=== PATIENT | female | born 1945 | race Caucasian/White ===

== ENCOUNTER 2016-10-09 16:09 | Inpatient (IN) | payer MEDICARE ==
[2016-10-09] MEDS ORDERED: SODIUM CHLORIDE 0.9% 1,000 ML IV STA (16:43)
[2016-10-09] MEDS ORDERED: SODIUM CHLORIDE 0.9% 500 ML IV STA (16:43)
[2016-10-09] MEDS ORDERED: METOCLOPRAMIDE 5 MG/ML 2 ML VIAL IVP STA (16:45)
--- NOTE | 2016-10-09 16:59 | ED ---
Syncope HPI - General Chief Complaint: Syncope Stated Complaint: Syncope Time Seen by Provider: 10/09/16 16:28 Source: patient, family Mode of arrival: wheelchair Limitations: no limitations - History of Present Illness Initial Comments: This 71-year-old white female presents complaining of a syncopal episode. She apparently was in her yard when she fell somewhat lightheaded or dizzy prior and apparently fell to the ground. She woke up approximately one hour later face down. She denies obtaining any injuries. She states that she felt quite weak afterwards and was nauseated. She denies any previous similar type incidents. She does relate that she has had a headache for the past one week with some associated neck pain. The headache is more in the frontal region. She denies any history of previous headaches. She denies being on any blood thinners. She denies any known cardiac history. She's never had a stress test or heart catheterization. She denies any chest pain shortness of breath or palpitations. She is somewhat nauseated but denies any vomiting. No other complaints or modifying factors. - Related Data Home Medications Medication Instructions Recorded Confirmed Aspirin [Adult Low Dose Aspirin EC] 81 mg PO DAILY 10/09/16 10/09/16 Cyanocobalamin [Vitamin B-12] 500 mcg PO DAILY 10/09/16 10/09/16 Ergocalciferol [Vitamin D2] 50,000 unit PO SA 10/09/16 10/09/16 Levothyroxine Sodium [Synthroid] 150 mcg PO DAILY 10/09/16 10/09/16 Medical Weight Loss Multivitamin 1 tab PO DAILY 10/09/16 10/09/16 Ubidecarenone [Co Q-10] 100 mg PO DAILY 10/09/16 10/09/16 Allergies Allergy/AdvReac Type Severity Reaction Status Date / Time No Known Allergies Allergy Verified 10/09/16 16:28 Review of Systems ROS Statement: Those systems with pertinent positive or pertinent negative responses have been documented in the HPI. ROS Other: All systems not noted in ROS Statement are negative. Past Medical History Past Medical History: Thyroid Disorder History of Any Multi-Drug Resistant Organisms: None Reported Past Surgical History: Hysterectomy Past Psychological History: No Psychological Hx Reported Smoking Status: Never smoker Past Alcohol Use History: None Reported Past Drug Use History: None Reported General Exam - General Exam Comments Initial Comments: GENERAL: The patient is well nourished and well hydrated. VITAL SIGNS: Heart rate, blood pressure, respiratory rate reviewed as recorded in nurse's notes. EYES: Pupils are round and reactive. Extraocular movements are intact. No conjunctival / lid redness or swelling. ENT: No external evidence of injury, swelling, or ecchymosis. Airway is patent. Throat is clear. NECK: There is mild tenderness present to the bilateral paracervical musculature. No swelling or evidence of injury. No subcutaneous emphysema. Trachea is midline. No thyroid mass. HEART: Regular rate and rhythm. Good peripheral pulses. LUNGS/CHEST: Breath sounds clear and equal bilaterally. No rales, rhonchi, or wheezes. No ecchymosis, subcutaneous emphysema, or tenderness. ABDOMEN: Abdomen soft without tenderness. No palpable masses or organomegaly. No peritoneal signs. No abdominal wall swelling or ecchymosis. EXTREMITIES: No extremity tenderness. Normal muscle tone and function. No thoracolumbar tenderness. NEUROLOGIC: Sensation is grossly intact. Cranial nerve exam reveals face is symmetrical, tongue is midline, speech is clear. SKIN: No abrasions or ecchymosis is noted. No induration or masses noted. PSYCHIATRIC: Alert and oriented. Appropriate behavior and judgment. Limitations: no limitations Course Vital Signs 10/09/16 16:12 Temperature 98.4 F Pulse Rate 78 Respiratory 16 Rate Blood Pressure 170/72 O2 Sat by Pulse 98 Oximetry Medical Decision Making - Medical Decision Making The patient was seen and examined. All diagnostics were reviewed. The EKG shows a normal sinus rhythm at a rate of 76. There is no acute ST-T wave changes noted. The ND interval is 171, the uterus duration is 88, and the QTc interval is 501. An IV is started and patient is hydrated. She received some Reglan for her nausea. She states that her headache feels better on recheck. The computed tomography scan of the brain did not show any acute processes. The computed tomography scan of the cervical spine shows some mild degenerative changes. The laboratory is overall unremarkable. The chest x-ray does not show any acute process. The exact cause of the syncopal episode is not definitively determined. It potentially could be related to the prolonged QTc interval. It is felt as though she would require admission to the hospital. The case is discussed with Dr. Jacob and she is agreeable to admission and would like patient have serial cardiac enzymes, an echocardiogram, and an EEG. - Lab Data Result diagrams: 10/09/16 17:44 10/09/16 17:44 Lab Results 10/09/16 10/09/16 10/09/16 Range/Units 10:09 17:44 17:44 WBC 10.8 H (3.8-10.6) k/uL RBC 4.36 (3.80-5.40) m/uL Hgb 13.6 (11.4-16.0) gm/dL Hct 40.2 (34.0-46.0) % MCV 92.2 (80.0-100.0) fL MCH 31.2 (25.0-35.0) pg MCHC 33.8 (31.0-37.0) g/dL RDW 12.7 (11.5-15.5) % Plt Count 266 (150-450) k/uL Neutrophils % 89 % Lymphocytes % 7 % Monocytes % 2 % Eosinophils % 1 % Basophils % 0 % Neutrophils # 9.6 H (1.3-7.7) k/uL Lymphocytes # 0.7 L (1.0-4.8) k/uL Monocytes # 0.2 (0-1.0) k/uL Eosinophils # 0.1 (0-0.7) k/uL Basophils # 0.0 (0-0.2) k/uL PT 10.3 (9.0-12.0) sec INR 1.0 (<1.1) APTT 24.5 (22.0-30.0) sec Sodium (137-145) mmol/L Potassium (3.5-5.1) mmol/L Chloride (98-107) mmol/L Carbon Dioxide (22-30) mmol/L Anion Gap mmol/L BUN (7-17) mg/dL Creatinine (0.52-1.04) mg/dL Est GFR (MDRD) Af Amer (>60 ml/min/1.73 sqM) Est GFR (MDRD) Non-Af (>60 ml/min/1.73 sqM) Glucose (74-99) mg/dL Calcium (8.4-10.2) mg/dL Total Bilirubin (0.2-1.3) mg/dL AST (14-36) U/L ALT (9-52) U/L Alkaline Phosphatase (38-126) U/L Total Creatine Kinase (30-135) U/L CK-MB (CK-2) (0.0-2.4) ng/mL CK-MB (CK-2) Rel Index Troponin I (0.000-0.034) ng/mL Total Protein (6.3-8.2) g/dL Albumin (3.5-5.0) g/dL Urine Color Light Yellow Urine Appearance Clear (Clear) Urine pH 7.0 (5.0-8.0) Ur Specific [place] 1.008 (1.001-1.035) Urine Protein Negative (Negative) Urine Glucose (UA) Negative (Negative) Urine Ketones 1+ H (Negative) Urine Blood Trace H (Negative) Urine Nitrite Negative (Negative) Urine Bilirubin Negative (Negative) Urine Urobilinogen <2.0 (<2.0) mg/dL Ur Leukocyte Esterase Negative (Negative) Urine RBC 3 (0-5) /hpf Urine WBC 1 (0-5) /hpf Urine Mucus Rare H (None) /hpf 10/09/16 10/09/16 Range/Units 17:44 17:44 WBC (3.8-10.6) k/uL RBC (3.80-5.40) m/uL Hgb (11.4-16.0) gm/dL Hct (34.0-46.0) % MCV (80.0-100.0) fL MCH (25.0-35.0) pg MCHC (31.0-37.0) g/dL RDW (11.5-15.5) % Plt Count (150-450) k/uL Neutrophils % % Lymphocytes % % Monocytes % % Eosinophils % % Basophils % % Neutrophils # (1.3-7.7) k/uL Lymphocytes # (1.0-4.8) k/uL Monocytes # (0-1.0) k/uL Eosinophils # (0-0.7) k/uL Basophils # (0-0.2) k/uL PT (9.0-12.0) sec INR (<1.1) APTT (22.0-30.0) sec Sodium 140 (137-145) mmol/L Potassium 3.9 (3.5-5.1) mmol/L Chloride 104 (98-107) mmol/L Carbon Dioxide 23 (22-30) mmol/L Anion Gap 13 mmol/L BUN 14 (7-17) mg/dL Creatinine 0.66 (0.52-1.04) mg/dL Est GFR (MDRD) Af Amer >60 (>60 ml/min/1.73 sqM) Est GFR (MDRD) Non-Af >60 (>60 ml/min/1.73 sqM) Glucose 111 H (74-99) mg/dL Calcium 9.4 (8.4-10.2) mg/dL Total Bilirubin 0.5 (0.2-1.3) mg/dL AST 26 (14-36) U/L ALT 33 (9-52) U/L Alkaline Phosphatase 57 (38-126) U/L Total Creatine Kinase 105 (30-135) U/L CK-MB (CK-2) 1.2 (0.0-2.4) ng/mL CK-MB (CK-2) Rel Index 1.1 Troponin I <0.012 (0.000-0.034) ng/mL Total Protein 7.5 (6.3-8.2) g/dL Albumin 4.5 (3.5-5.0) g/dL Urine Color Urine Appearance (Clear) Urine pH (5.0-8.0) Ur Specific [place] (1.001-1.035) Urine Protein (Negative) Urine Glucose (UA) (Negative) Urine Ketones (Negative) Urine Blood (Negative) Urine Nitrite (Negative) Urine Bilirubin (Negative) Urine Urobilinogen (<2.0) mg/dL Ur Leukocyte Esterase (Negative) Urine RBC (0-5) /hpf Urine WBC (0-5) /hpf Urine Mucus (None) /hpf Disposition Clinical Impression: Syncope and collapse, Cephalgia, Neck pain, Prolonged Q-T interval on ECG, Nausea, Fall Disposition: ADMITTED IP TO THIS [facility] Condition: Fair Time of Disposition: 18:52 Decision Date: 10/09/16 Decision Time: 18:52
--- NOTE | 2016-10-09 17:47 | CT ---
EXAMINATION TYPE: CT brain cspine wo con DATE OF EXAM: 10/09/2016 5:34 PM COMPARISON: 08/10/2010 HISTORY: Syncopal episode today. Patient woke up on the ground. Headache and weakness since. CT DLP: 1403.50 mGycm Automated exposure control for dose reduction was used. TECHNIQUE: CT scan of the head and cervical spine are performed without contrast. FINDINGS: The ventricles and sulci are normal for age. There is no mass effect nor midline shift. T here is no sign of intracranial hemorrhage. The calvarium is intact. There is no sign of a fracture. The cervical vertebra have fairly normal spacing. There is mild straightening. There is spurring of t he endplates at C5-6 anteriorly and posteriorly. Facet joints are intact. I see no bony destructive p rocess. The skull base is intact. IMPRESSION: Negative CT scan of the brain. No change compared to old exam. Spondylosis at C5-6. No fracture.
--- NOTE | 2016-10-09 17:47 | XR ---
EXAMINATION TYPE: XR chest 2V DATE OF EXAM: 10/09/2016 5:34 PM COMPARISON: NONE HISTORY: Syncope TECHNIQUE: Frontal and lateral views of the chest are obtained. FINDINGS: There is no heart failure nor confluent pneumonic infiltrate. Heart and mediastinum are no rmal. There are chest leads. There is no sign of pleural effusion. Bony thorax is intact. IMPRESSION: Normal chest
[2016-10-09 17:55] LABS: Basophils % (A) 0 %; CH 31.2; Eosinophils # (A) 0.1 k/uL (0-0.7); Eosinophils % (A) 1 %; HCT 40.2 % (34.0-46.0); HDW 2.48; HGB 13.6 gm/dL (11.4-16.0); Luc # (Auto) 0.14; Luc % (Auto) 1; Lymphocytes # (A) 0.7 k/uL (1.0-4.8); Lymphocytes % (A) 7 %; MCH 31.2 pg (25.0-35.0); MCHC 33.8 g/dL (31.0-37.0); MCV 92.2 fL (80.0-100.0); Monocytes # (A) 0.2 k/uL (0-1.0); Monocytes % (A) 2 %; Neutrophils # (A) 9.6 k/uL (1.3-7.7); Neutrophils % (A) 89 %; RBC 4.36 m/uL (3.80-5.40); RDW 12.7 % (11.5-15.5); WBC 10.8 k/uL (3.8-10.6)
[2016-10-09 18:06] LABS: ALT 33 U/L (9-52); AST 26 U/L (14-36); Alkaline Phosphatase 57 U/L (38-126); Anion Gap 13 mmol/L; Blood Urea Nitrogen 14 mg/dL (7-17); Calcium 9.4 mg/dL (8.4-10.2); Carbon Dioxide 23 mmol/L (22-30); Chloride 104 mmol/L (98-107); Glucose 111 mg/dL (74-99); Non-African American GFR(MDRD) >60 (>60 ml/min/1.73 sqM); Potassium 3.9 mmol/L (3.5-5.1); Sodium 140 mmol/L (137-145); Total Bilirubin 0.5 mg/dL (0.2-1.3); Total Protein 7.5 g/dL (6.3-8.2)
[2016-10-09 18:12] LABS: Partial Thromboplastin Time 24.5 sec (22.0-30.0); Prothrombin Time 10.3 sec (9.0-12.0)
[2016-10-09 18:17] LABS: Creatine Kinase 105 U/L (30-135)
[2016-10-09 18:29] LABS: Appearance,Urine Clear (Clear); Bilirubin,Urine Negative (Negative); Glucose,Urine (UA) Negative (Negative); Ketones,Urine 1+ (Negative); Leukocyte Esterase,Urine Negative (Negative); Mucus,Urine Rare /hpf; Nitrite,Urine Negative (Negative); Particle Count 1402; Protein,Urine Negative (Negative); RBC,Urine 3 /hpf (0-5); Specific Gravity,Urine 1.008 (1.001-1.035); UA Billing (MACRO vs. MICRO) MICRO; Urobilinogen,Urine <2.0 mg/dL (<2.0); WBC,Urine 1 /hpf (0-5)
[2016-10-09 18:30] LABS: Creatine Kinase MB 1.2 ng/mL (0.0-2.4); Troponin I <0.012 ng/mL (0.000-0.034)
[2016-10-09] MEDS ORDERED: ACETAMINOPHEN TAB 325 MG TAB PO PRN (23:00)
[2016-10-10 00:42] LABS: Creatine Kinase 118 U/L (30-135)
[2016-10-10 00:56] LABS: Creatine Kinase MB 1.1 ng/mL (0.0-2.4); Troponin I <0.012 ng/mL (0.000-0.034)
[2016-10-10] MEDS: LEVOTHYROXINE 75 MCG TAB PO SCH (06:38)
[2016-10-10 06:48] LABS: Creatine Kinase 111 U/L (30-135)
[2016-10-10 06:59] LABS: Creatine Kinase MB 0.8 ng/mL (0.0-2.4); Troponin I <0.012 ng/mL (0.000-0.034)
[2016-10-10] MEDS: ENOXAPARIN 40 MG/0.4 ML SYRINGE SQ SCH (07:48)
[2016-10-10] MEDS: ASPIRIN 325 MG TAB PO SCH (07:48)
[2016-10-10] MEDS ORDERED: NON-FORMULARY DRUG (Ubidecarenone [Co Q-10] 100 MG) PO SCH (09:00)
--- NOTE | 2016-10-10 11:11 | ECHOF ---
Referral Reason:syncope MEASUREMENTS -------- HEIGHT: 160.0 cm WEIGHT: 86.6 kg BP: IVSd: 1.2 cm (0.6 - 1.1) LVIDd: 3.7 cm (3.9 - 5.3) LVPWd: 1.1 cm (0.6 - 1.1) IVSs: 1.7 cm LVIDs: 1.9 cm LVPWs: 1.5 cm Ao Diam: 3.2 cm (2.0 - 3.7) AV Cusp: 2.1 cm (1.5 - 2.6) LA Diam: 3.4 cm (2.7 - 3.8) MV EXCURSION: 13.883 mm (> 18.000) MV EF SLOPE: 80 mm/s (70 - 150) EPSS: 0.5 cm MV E Chay: 1.06 m/s MV DecT: 167 ms MV A Chay: 0.96 m/s MV E/A Ratio: 1.11 RAP: 5.00 mmHg RVSP: 25.35 mmHg FINDINGS -------- Sinus rhythm. This was a technically good study. The left ventricular size is normal. There is borderline concentric left ventricular hypertrophy. Overall left ventricular systolic function is normal with, an EF between 55 - 60 %. The right ventricle is normal in size and function. The left atrium is normal in size. The right atrium is normal in size. The aortic valve is trileaflet, and appears structurally normal. No aortic stenosis or regurgitation. The mitral valve is normal. There is trace mitral regurgitation. Mild tricuspid regurgitation present. The right ventricular systolic pressure, as measured by Doppler, is 25.35mmHg. There is no pulmonic regurgitation present. The aortic root size is normal. There is no pericardial effusion. CONCLUSIONS -------- 1. Sinus rhythm. 2. There is no pulmonic regurgitation present. 3. The aortic root size is normal. 4. There is no pericardial effusion. 5. This was a technically good study. 6. There is borderline concentric left ventricular hypertrophy. 7. Overall left ventricular systolic function is normal with, an EF between 55 - 60 %. 8. The left atrium is normal in size. 9. The aortic valve is trileaflet, and appears structurally normal. No aortic stenosis or regurgitation. 10. There is trace mitral regurgitation. 11. Mild tricuspid regurgitation present. 12. The right ventricular systolic pressure, as measured by Doppler, is 25.35mmHg. ROPE RIDER: Antonietta Copeland RDCS
--- NOTE | 2016-10-10 11:50 | CONS ---
DATE OF CONSULTATION: CHIEF COMPLAINT: Syncope. Lena is a 71-year-old lady with no significant past medical history other than hypothyroidism, came to hospital having had an episode of syncope. She states that she was working in her garden and then suddenly fell back and passed out. Had bladder incontinence. Did not have any focal neurological deficits, resolved spontaneously. She had one episode that has resolved since. EKG shows sinus rhythm with prolonged QT interval. She is not on any QT prolonging drugs. She has had 3 sets of cardiac enzymes that are all within normal limits. Potassium is normal at 3.9. Hemoglobin is 13.6. Echocardiogram on her shows normal LV systolic function without significant valvular heart disease. Rhythm strip shows that she is in sinus rhythm. Past medical history is significant for hypothyroidism. Current medications include aspirin, vitamin D2, Synthroid, multivitamin, Co Q-10. ALLERGIES: There are no known drug allergies. Family history is negative for premature coronary artery disease. Social history is negative for current smoking, EtOH abuse, or drug abuse. REVIEW OF SYSTEMS: HEENT is unremarkable. CARDIAC: As described above. RESPIRATORY: Negative. GI: Negative. GENITOURINARY: Negative. ALLERGY/IMMUNOLOGY: Negative. SKIN: Negative. MUSCULOSKELETAL: Negative. ENDOCRINE: Negative. CONSTITUTIONAL: Negative. [employer]: Significant for syncope. On exam, comfortable at rest. Vital signs are stable. There is no jugular venous distention. Chest exam reveals good air entry bilaterally. Heart exam reveals first and second heart sounds. No gallop. Abdomen is soft, nontender. Exam of the extremities did not reveal edema. Peripheral pulses are felt. [employer] exam did not reveal focal neurological deficits. Labs show that 3 sets of tropes are negative. Hemoglobin is normal. EKG did not reveal ischemic changes. ASSESSMENT: 1. Syncope, rule out cardiac causes. 2. Prolonged QT interval. PLAN: Work-up so far is negative. She did not have any cardiac arrhythmias. Please avoid QT prolonging drugs. Will ambulate her. If she is doing well, she can be discharged home and I will do an outpatient stress test on her.
[2016-10-10] MEDS: MULTIVITAMINS, THERA 1 EACH TAB PO SCH (12:17)
[2016-10-10] MEDS: CYANOCOBALAMIN 500 MCG TAB PO SCH (12:17)
--- NOTE | 2016-10-10 14:46 | P.HPIM ---
History of Present Illness H&P Date: 10/10/16 Chief Complaint: Syncope This is a pleasant 71-year-old lady patient of Dr. Rasheed. She has underlying history of hypothyroidism and a previous syncopal event 10 years prior to admission. She didn't have any workup at that time. She presented to emergency room after she felt lightheaded and dizzy and she thought that the ground shaking when she was working in the yard yesterday. She does not report any overt exhaustion or any GI losses at the time. She seemed to be well hydrated apparently she had felt weak and dizzy and thereafter passed out. It was not witnessed what happened during the syncopal event, patient denies any palpitations or chest discomfort during this. She had off and on headache for about a week prior to admission none during the event, also epistaxis off and on for about a week not during the event of syncope, her symptoms of dizziness occurs whenever the patient bends down and stands up, similar episodes for syncope 10 years ago. Patient denies any new medications from any physicians, she is only on multivitamins for her medical weight loss. She also goes to [employer] for an endurance program as recommended by the son she gets lightheaded and dizzy within 20 minutes of exercising there is no syncopal event during that time. Patient also reported later on that she had incontinence of the urine with a syncopal event there is no focal neurologic deficits upon awakening. She woke up up one hour later and was assisted by the who called his PCP. Emergency room she had a CAT scan of the head and cervical spine that failed to reveal any abnormality ventricles are normal for age, no mass effect or midline shift, no signs of intracranial hemorrhage, no signs off fracture, cervical vertebra shows mild spurring C5-C6, no destructive processes, EKG shows normal sinus rhythm prolonged QT with QTC of 501 chest x-ray shows normal chest no infiltrates no cardiomegaly or effusion. Urinalysis shows 6. speci [place] of 1.008 without any pyuria, otherwise normal chemistries blood sugar was 111 WBC count of 10.8. Patient was admitted to telemetry floor with consultations neurology and cardiology, orthostatics will be obtained along with EEG and echocardiogram Review of Systems Constitutional: Reports as per HPI, Denies anorexia, Denies chills, Denies chronic headaches, Denies chronic pain, Denies daytime sleepiness, Denies fatigue, Denies fever, Denies lethargy, Denies malaise, Denies night sweats, Denies poor appetite, Denies sweats, Denies weakness, Denies weight gain, Denies weight loss Ears, nose, mouth and throat: Reports as per HPI, Denies ant. neck pain, Denies bleeding gums, Denies dental pain, Denies dysphagia, Denies epistaxis, Denies headache, Denies hoarseness, Denies mouth pain, Denies nasal congestion, Denies nasal discharge, Denies neck fullness/pressure, Denies neck lump, Denies nose pain, Denies odynophagia, Denies post-nasal drip, Denies sinus pain, Denies sinus pressure, Denies swelling in mouth, Denies swelling in throat, Denies sore throat, Denies vertigo, Denies voice changes Breasts: Reports as per HPI Cardiovascular: Reports as per HPI, Denies chest pain, Denies claudication, Denies decreased exercise tolerance, Denies dyspnea on exertion, Denies edema, Denies high blood pressure, Denies irregular heart beat, Denies leg edema, Denies lightheadedness, Denies orthopnea, Denies palpitations, Denies paroxysmal nocturnal dyspnea, Denies phlebitis, Denies rapid heart beat, Denies shortness of breath, Denies syncope Respiratory: Reports as per HPI, Denies congestion, Denies cough, Denies cough with sputum, Denies dyspnea, Denies excessive sputum, Denies hemoptysis, Denies home oxygen, Denies pain, Denies pain on inspiration, Denies pleurisy, Denies respiratory infections, Denies sleep apnea, Denies snoring, Denies wheezing Gastrointestinal: Reports as per HPI, Denies abdominal pain, Denies belching, Denies bloating, Denies BRBPR, Denies change in bowel habits, Denies coffee ground emesis, Denies constipation, Denies diarrhea, Denies dyspepsia, Denies early satiety, Denies excessive gas, Denies heartburn, Denies hematemesis, Denies hematochezia, Denies indigestion, Denies jaundice, Denies lactose intolerance, Denies loss of appetite, Denies melena, Denies nausea, Denies vomiting Genitourinary: Reports as per HPI, Denies abnormal vaginal bleeding, Denies decreased libido, Denies difficulty conceiving, Denies difficulty voiding, Denies dysmenorrhea, Denies dyspareunia, Denies dysuria, Denies flank pain, Denies genital sores, Denies hematuria, Denies hot flashes, Denies incomplete emptying, Denies kidney stones, Denies menorrhagia, Denies mixed incontinence, Denies nocturia, Denies pelvic pain, Denies post void dribbling, Denies , Denies prolapse symptoms, Denies stress incontinence, Denies urge incontinence , Denies urgency, Denies urinary frequency, Denies vaginal discharge, Denies vaginal dryness, Denies vaginal itching, Denies vaginal odor Menstruation: Reports as per HPI, Reports post hysterectomy, Reports postmenopausal, Denies amenorrhea, Denies amenorrhea on BC, Denies currently menstrual, Denies cycle < 21 days, Denies cycle > 35 days, Denies cycle variable , Denies menses 1-7 days, Denies menses 8 or > days, Denies menses variable, Denies period heavy, Denies period light, Denies period normal, Denies period spotting, Denies premenarcheal Musculoskeletal: Reports as per HPI, Denies arm numbness/tingling, Denies atrophy, Denies fractures, Denies frequent falls, Denies gait dysfunction, Denies hot joints, Denies leg numbness/tingling, Denies limitation of motion, Denies loss of height, Denies low back pain, Denies morning stiffness, Denies muscle cramps, Denies muscle weakness, Denies myalgias, Denies neck pain, Denies neck stiffness, Denies prior amputations, Denies redness of joints, Denies shooting arm pain, Denies shooting leg pain Integumentary: Reports as per HPI, Denies acne, Denies boils, Denies brittle nails, Denies change in hair/nails, Denies color changes, Denies darkening of skin, Denies depigmentation, Denies dryness, Denies foot/leg ulcers, Denies growths, Denies hirsutism, Denies lesions, Denies onychomycosis, Denies pruritus , Denies rash, Denies sores, Denies striae, Denies unusual bruising, Denies wounds Neurological: Reports as per HPI, Denies aphasia, Denies ataxia, Denies balance difficulties, Denies burning pain, Denies change in mentation, Denies change in smell/taste, Denies change in speech, Denies confusion, Denies convulsions, Denies double vision, Denies gait dysfunction, Denies head injury, Denies headaches, Denies hearing difficulties, Denies lack of coordination, Denies loss of vision, Denies memory loss, Denies migraines, Denies motor disturbance, Denies numbness, Denies paralysis, Denies paresthesias, Denies seizures, Denies sensory deficit, Denies spasticity, Denies syncope, Denies tic, Denies tingling , Denies transient paralysis, Denies tremors, Denies vertigo, Denies weakness, Denies visual changes Psychiatric: Reports as per HPI, Reports sleep disturbances, Denies anhedonia, Denies anxiety, Denies anxiety attacks, Denies change in appetite, Denies change in libido, Denies change in sleep habits, Denies confusion, Denies depression, Denies difficulty concentrating, Denies disorientation, Denies hallucinations, Denies hopelessness, Denies hypersomnia, Denies insomnia, Denies irritability, Denies memory loss, Denies mood swings, Denies paranoia, Denies sadness/tearfulness, Denies suicidal ideation Endocrine: Reports as per HPI, Denies cold intolerance, Denies deepening of the voice, Denies excessive sweating, Denies excessive thirst, Denies fatigue, Denies flushing, Denies heat intolerance, Denies high blood sugars, Denies increase in ring/shoe/hat size, Denies low blood sugars, Denies nocturia, Denies palpitations, Denies polydipsia, Denies polyphagia, Denies polyuria, Denies proptosis, Denies recent glucocorticoid use, Denies thyroid mass, Denies weight change Hematologic/Lymphatic: Reports as per HPI, Denies easy bleeding, Denies easy bruising, Denies lymphadenopathy, Denies lymphedema, Denies thrombophilia Allergic/Immunologic: Reports as per HPI, Denies allergic rhinitis, Denies anaphylaxis, Denies angioedema, Denies gluten intolerance, Denies persistent infections, Denies seasonal allergies, Denies urticaria, Denies wheezing Past Medical History Past Medical History: Syncope, Thyroid Disorder History of Any Multi-Drug Resistant Organisms: None Reported Past Surgical History: Cholecystectomy, Hysterectomy Past Anesthesia/Blood Transfusion Reactions: No Reported Reaction Past Psychological History: No Psychological Hx Reported Smoking Status: Never smoker Past Alcohol Use History: None Reported Past Drug Use History: None Reported - Past Family History Father Family Medical History: Congestive Heart Failure (CHF), Coronary Artery Disease (CAD) Sister(s) Family Medical History: Coronary Artery Disease (CAD), CVA/TIA Additional Family Medical History / Comment(s): aortic valve replacement Brother(s) Family Medical History: Myocardial Infarction (AL) Mother Family Medical History: Coronary Artery Disease (CAD) Son(s) Family Medical History: Hyperlipidemia Medications and Allergies Home Medications Medication Instructions Recorded Confirmed Type Aspirin [Adult Low Dose Aspirin EC] 81 mg PO DAILY 10/09/16 10/09/16 History Cyanocobalamin [Vitamin B-12] 500 mcg PO DAILY 10/09/16 10/09/16 History Ergocalciferol [Vitamin D2] 50,000 unit PO SA 10/09/16 10/09/16 History Levothyroxine Sodium [Synthroid] 150 mcg PO DAILY 10/09/16 10/09/16 History Medical Weight Loss Multivitamin 1 tab PO DAILY 10/09/16 10/09/16 History Ubidecarenone [Co Q-10] 100 mg PO DAILY 10/09/16 10/09/16 History Allergies Allergy/AdvReac Type Severity Reaction Status Date / Time No Known Allergies Allergy Verified 10/09/16 16:28 Physical Exam Vitals: Vital Signs Temp Pulse Pulse Resp BP BP Pulse Ox 10/10/16 07:52 97 F L 78 16 129/58 97 10/10/16 03:30 97.2 F L 69 18 109/54 98 10/10/16 00:00 96.5 F L 71 18 126/61 95 10/09/16 20:00 96.7 F L 78 18 133/67 96 10/09/16 19:46 98.0 F 10/09/16 19:13 78 18 139/68 99 Intake and Output 10/09/16 10/10/16 10/10/16 22:59 06:59 14:59 Intake Total 1200 236 Output Total 400 300 Balance -400 1200 -64 Intake: IV 1200 Sodium Chloride 0.9% 1, 1200 000 ml @ 100 mls/hr IV . Q10H STA Rx#:[id number] Oral 236 Output: Urine 400 300 Other: Voiding Method Toilet Toilet # Voids 200 Weight 86.8 kg 86.8 kg - Constitutional General appearance: cooperative, no acute distress, obese - EENT Eyes: anicteric sclerae, EOMI, PERRLA, dentition normal, normal appearance ENT: no hard of hearing, no hearing grossly normal, NA/AT, normal oropharynx, no other, no pharyngeal erythema, no thrush, no tonsillar exudates, no tonsillar swelling - Neck Neck: no lymphadenopathy, normal ROM, no other, no rigidity, no stridor, no thyromegaly - Respiratory Respiratory: bilateral: CTA, negative: diminished, dullness, rales, rhonchi, wheezing, prolonged expiration, prolonged inspiration, other - Cardiovascular Rhythm: regular Heart sounds: normal: S1, S2 Abnormal Heart Sounds: no systolic murmur, no diastolic murmur, no rub, no S3 Gallop, no S4 Gallop, no click, no other - Gastrointestinal General gastrointestinal: normal bowel sounds, soft - Integumentary Integumentary: normal, normal turgor - Neurologic Neurologic: CNII-XII intact - Musculoskeletal Musculoskeletal: gait normal, strength equal bilaterally - Psychiatric Psychiatric: A&O x's 3, appropriate affect, intact judgment & insight Results CBC & Chem 7: 10/09/16 17:44 10/09/16 17:44 Labs: Laboratory Results WBC 10.8 k/uL (3.8-10.6) H 10/09/16 17:44 RBC 4.36 m/uL (3.80-5.40) 10/09/16 17:44 Hgb 13.6 gm/dL (11.4-16.0) 10/09/16 17:44 Hct 40.2 % (34.0-46.0) 10/09/16 17:44 MCV 92.2 fL (80.0-100.0) 10/09/16 17:44 MCH 31.2 pg (25.0-35.0) 10/09/16 17:44 MCHC 33.8 g/dL (31.0-37.0) 10/09/16 17:44 RDW 12.7 % (11.5-15.5) 10/09/16 17:44 Plt Count 266 k/uL (150-450) 10/09/16 17:44 Neutrophils % 89 % 10/09/16 17:44 Lymphocytes % 7 % 10/09/16 17:44 Monocytes % 2 % 10/09/16 17:44 Eosinophils % 1 % 10/09/16 17:44 Basophils % 0 % 10/09/16 17:44 Neutrophils # 9.6 k/uL (1.3-7.7) H 10/09/16 17:44 Lymphocytes # 0.7 k/uL (1.0-4.8) L 10/09/16 17:44 Monocytes # 0.2 k/uL (0-1.0) 10/09/16 17:44 Eosinophils # 0.1 k/uL (0-0.7) 10/09/16 17:44 Basophils # 0.0 k/uL (0-0.2) 10/09/16 17:44 PT 10.3 sec (9.0-12.0) 10/09/16 17:44 INR 1.0 (<1.1) 10/09/16 17:44 APTT 24.5 sec (22.0-30.0) 10/09/16 17:44 Sodium 140 mmol/L (137-145) 10/09/16 17:44 Potassium 3.9 mmol/L (3.5-5.1) 10/09/16 17:44 Chloride 104 mmol/L (98-107) 10/09/16 17:44 Carbon Dioxide 23 mmol/L (22-30) 10/09/16 17:44 Anion Gap 13 mmol/L 10/09/16 17:44 BUN 14 mg/dL (7-17) 10/09/16 17:44 Creatinine 0.66 mg/dL (0.52-1.04) 10/09/16 17:44 Est GFR (MDRD) Af Amer >60 (>60 ml/min/1.73 sqM) 10/09/16 17:44 Est GFR (MDRD) Non-Af >60 (>60 ml/min/1.73 sqM) 10/09/16 17:44 Glucose 111 mg/dL (74-99) H 10/09/16 17:44 Calcium 9.4 mg/dL (8.4-10.2) 10/09/16 17:44 Magnesium 2.1 mg/dL (1.6-2.3) 10/10/16 05:27 Total Bilirubin 0.5 mg/dL (0.2-1.3) 10/09/16 17:44 AST 26 U/L (14-36) 10/09/16 17:44 ALT 33 U/L (9-52) 10/09/16 17:44 Alkaline Phosphatase 57 U/L (38-126) 10/09/16 17:44 Total Creatine Kinase 111 U/L (30-135) 10/10/16 05:27 CK-MB (CK-2) 0.8 ng/mL (0.0-2.4) 10/10/16 05:27 CK-MB (CK-2) Rel Index 0.7 10/10/16 05:27 Troponin I <0.012 ng/mL (0.000-0.034) 10/10/16 05:27 Total Protein 7.5 g/dL (6.3-8.2) 10/09/16 17:44 Albumin 4.5 g/dL (3.5-5.0) 10/09/16 17:44 Urine Color Light Yellow 10/09/16 10:09 Urine Appearance Clear (Clear) 10/09/16 10:09 Urine pH 7.0 (5.0-8.0) 10/09/16 10:09 Ur Specific [place] 1.008 (1.001-1.035) 10/09/16 10:09 Urine Protein Negative (Negative) 10/09/16 10:09 Urine Glucose (UA) Negative (Negative) 10/09/16 10:09 Urine Ketones 1+ (Negative) H 10/09/16 10:09 Urine Blood Trace (Negative) H 10/09/16 10:09 Urine Nitrite Negative (Negative) 10/09/16 10:09 Urine Bilirubin Negative (Negative) 10/09/16 10:09 Urine Urobilinogen <2.0 mg/dL (<2.0) 10/09/16 10:09 Ur Leukocyte Esterase Negative (Negative) 10/09/16 10:09 Urine RBC 3 /hpf (0-5) 10/09/16 10:09 Urine WBC 1 /hpf (0-5) 10/09/16 10:09 Urine Mucus Rare /hpf (None) H 10/09/16 10:09 Thrombosis Risk Factor Assmnt - DVT/VTE Prophylaxis DVT/VTE Prophylaxis: Mechanical Prophylaxis ordered - Choose All That Apply Other Risk Factors: Yes Each Risk Factor Represents 2 Points: Age 61-74 years Thrombosis Risk Factor Assessment Total Risk Factor Score: 2 Thrombosis Risk Factor Assessment Level: Low Risk Assessment and Plan Plan: 1. Acute syncope abnormal EKG with prolonged QT interval, patient is not on any QT prolonging medications, no recent antibiotics no recent dehydration related to GI losses or diminished oral intake, she had previous similar episodes 10 years prior to admission. She didn't have any history of seizures patient will be seen in consultation by cardiology and pulmonary, orthostatic vital signs echocardiogram EEG of the brain are all requested. Patient is monitored in telemetry to evaluate for any significant arrhythmias at this time current telemetry strip shows she is in sinus rhythm without any ml- arrhythmia malignant tachyarrhythmia arrhythmias noted. Stress test is warranted whether to be done as an inpatient or outpatient, we'll going to wait final recommendation by the neurologist after the proper EEG reports are done. Patient also was counseled regarding no driving until after the etiology of the syncope is fully evaluated 2. Hypothyroidism on levothyroxine this will be continued 3. BMI of 33 currently on multivitamins, patient is not aggressively modifying her diet that could cause her to have some syncopal events 4. Significant family history of coronary artery disease
--- NOTE | 2016-10-10 16:07 | US ---
EXAMINATION TYPE: US carotid duplex BILAT DATE OF EXAM: 10/10/2016 3:54 PM COMPARISON: 07/06/2010 carotid ultrasound. CLINICAL HISTORY: syncope. EXAM MEASUREMENTS: RIGHT: Peak Systolic Velocity (PSV) cm/sec ----- Right CCA: 60.7 ----- Right ICA: 92.4 ----- Right ECA: 79.4 ICA/CCA ratio: 1.5 RIGHT: End Diastole cm/sec ----- Right CCA: 16.7 ----- Right ICA: 31.3 ----- Right ECA: 10.3 LEFT: Peak Systolic Velocity (PSV) cm/sec ----- Left CCA: 77.4 ----- Left ICA: 108.1 ----- Left ECA: 82.7 ICA/CCA ratio: 1.4 LEFT: End Diastole cm/sec ----- Left CCA: 22.5 ----- Left ICA: 35.4 ----- Left ECA: 12.8 VERTEBRALS (direction of flow): Right Vertebral: Antegrade Left Vertebral: Antegrade TECHNOLOGIST IMPRESSION: No atherosclerotic changes. No significant hemodynamic stenosis No significant focal plaque is seen in carotid bulb level bilaterally. IMPRESSION: No hemodynamically significant stenosis is seen in either internal carotid artery.
[2016-10-10] MEDS ORDERED: MELATONIN 3 MG TABLET PO SCH (21:00)
[2016-10-11 05:05] VITALS: TEMP 97.4
[2016-10-11] MEDS: LEVOTHYROXINE 75 MCG TAB PO SCH (08:18)
[2016-10-11] MEDS: ENOXAPARIN 40 MG/0.4 ML SYRINGE SQ SCH (08:18)
[2016-10-11] MEDS: ASPIRIN 325 MG TAB PO SCH (08:18)
--- NOTE | 2016-10-11 09:32 | P.PN ---
Subjective Principal diagnosis: Syncope This 69-year-old female with history of hypothyroidism. Admitted to the hospital following a syncopal episode. According to the patient, she had a very similar episode approximately 10 years ago. No prior cardiac workup or workup for syncope according to her. On this occasion, she was in her backyard extending down to clean up after a pet, when she felt as though the ground was moving, she felt mildly dizzy and lightheaded. She then stood up and states that she was walking towards presents to keep herself a stable, prior to arriving at the fence he passed out without warning. Syncopal event was on witnessed. She denies any loss of bowel control, she did lose bladder control. Patient was alert and oriented upon wakening. According to the patient, she does get episodes where she periodically becomes dizzy, however these have never resulted in a syncopal episode. Patient does state recently that she has also had some nosebleeds with associated headache. Patient states she does not feel she was dehydrated, although she does not drink much water at home. CAT scan of the head and cervical spine failed to reveal any abnormality. EKG showed a normal sinus rhythm with a prolonged QT interval of 501. No orthostatic symptoms yet been obtained, I requested the nurse to get those this morning. She's had no episodes of tachycardia or bradycardia arrhythmias on the monitor. EKG this morning shows a normal sinus rhythm with a calculated QT of 477. She is not on any current medications that prolong the QT interval. White blood cell count 10.8, hemoglobin 13.6. Potassium 3.9. BUN 14, creatinine 0.6. Troponins have been negative 3. Blood pressure this morning 98/50 with a heart rate in the 60s. At the time of my examination this morning , patient denies any recurrent dizziness or lightheadedness. Echocardiogram with Doppler study revealed normal left ventricular systolic function. Objective - Vital Signs Vital signs: Vital Signs Temp 97.4 F L 10/11/16 04:00 Pulse 63 10/11/16 04:00 Resp 18 10/11/16 04:00 BP 99/52 10/11/16 04:00 Pulse Ox 98 10/11/16 04:00 Intake & Output 10/10/16 10/11/16 10/11/16 18:59 06:59 18:59 Intake Total 436 600 180 Output Total 300 700 Balance 136 -100 180 Weight 86.5 kg Intake: Oral 436 600 180 Output: Urine 300 700 Other: Voiding Method Toilet - Exam PHYSICAL EXAMINATION: HEENT: Head is atraumatic, normocephalic. Pupils equal, round. Neck is supple. There is no elevated jugular venous pressure. HEART EXAMINATION: Heart S1, S2 normal. No murmur or gallop heard. CHEST EXAMINATION: Lungs are clear to auscultation and precussion. No chest wall tenderness is noted on palpation or with deep breathing. ABDOMEN: Soft, nontender. Bowel sounds are heard. No organomegaly noted. EXTREMITIES: 2+ peripheral pulses with no evidence of peripheral edema and no calf tenderness noted. NEUROLOGIC patient is awake, alert and oriented -3. . - Labs CBC & Chem 7: 10/09/16 17:44 10/09/16 17:44 Assessment and Plan Plan: Assessment and plan #1 syncope, EKG shows normal sinus rhythm with a prolonged QT interval. Patient had one similar episode approximately 10 years ago. #2 hypothyroidism #3 family history of premature coronary artery disease Plan We will obtain orthostatic heart rate and blood pressure. If negative, patient is been recommended to undergo a tilt table test today. On discharge an event monitor has also been recommended. She will have a follow-up appointment in the office with Dr. Hawley ,stress test will be performed as an outpatient. DNP note has been reviewed, I agree with a documented findings and plan of care. Patient was seen and examined.
--- NOTE | 2016-10-11 09:34 | CONS ---
DATE OF CONSULTATION: 10/10/2016 CHIEF COMPLAINT: Syncope. HISTORY OF PRESENT ILLNESS: Mrs. Brandon is a pleasant 71-year-old female who is being evaluated today on 10/10/2016 by the neurology service per the request of Dr. Jacob for a syncopal spell. The patient was brought into [facility] from her home after she had a sudden onset of dizziness which she describes as a lightheaded sensation. The patient was working in her yard when the symptoms started. The patient then did lose consciousness, but no seizure-like activity was described. She was brought into [facility] Emergency Room for an evaluation. Her EKG showed a normal sinus rhythm, but there was a prolongation of her QT interval. Cardiology has been consulted. A CT scan of the brain was done, which was normal. She did have an EEG and I did review the study, which was within normal limits. Her carotid Doppler showed no hemodynamically significant stenosis. Her CBC was normal except for borderline leukocytosis at 10.8. Her cardiac enzymes, comprehensive metabolic profile, INR and urinalysis were reviewed and were within normal limits. At the time of my evaluation, she is lying in her bed and appears to be in no acute distress. She denies any neurological symptoms, and she denies any recurrence of any dizziness since of her admission. PAST MEDICAL HISTORY: Hypothyroidism. SOCIAL HISTORY: She denies any tobacco, alcohol or drug use. FAMILY HISTORY: Positive for heart disease and stroke. HOME MEDICATIONS: Reviewed in the chart. ALLERGIES: No known drug allergies. REVIEW OF SYSTEMS: As mentioned above and otherwise negative. PHYSICAL EXAM: Vital signs show a temperature of 97.6, pulse 76, respirations 16, blood pressure 114/59. GENERAL APPEARANCE: The patient is a well-developed, elderly female who appears to be in no acute distress. HEENT: Normocephalic, atraumatic, no facial asymmetry is seen. Extraocular muscles are intact. Neck is supple with no masses felt. CARDIOVASCULAR: Regular rate and rhythm. ABDOMEN: Nontender, nondistended. EXTREMITIES: No edema or clubbing. NEUROLOGICAL EXAM: The patient is alert, aware, and oriented x3. Speech and language are normal. Strength is full in all 4 extremities. Sensory exam was normal to light touch in all 4 extremities. No facial asymmetry is seen on cranial nerve testing. IMPRESSION: 1. Syncopal spell. 2. Dizziness. 3. Hypothyroidism. 4. Abnormal EKG. RECOMMENDATIONS: The patient did have a true syncopal episode, which was preceded by a lightheaded sensation without any palpitations. Her neurological work-up was normal, including her CT scan of the brain and EEG. Her carotid Doppler showed no hemodynamically significant stenosis. I do believe her syncopal episode was due to cardiovascular etiology. Her EKG prolonged QT interval. I do recommend further work-up by Cardiology. Cardiology has been consulted. No further inpatient neurological work-up is needed. From a neurology standpoint, the patient is cleared for discharge. Thank you for allowing me to participate in the care of your patient. If you have any questions, please feel free to contact me.
[2016-10-11] MEDS ORDERED: SODIUM CHLORIDE 0.9% 1,000 ML IV SCH (09:45)
--- NOTE | 2016-10-11 10:26 | EEG ---
DATE OF SERVICE: 10/10/2016 INDICATIONS FOR EXAMINATION: This EEG was performed using 21 channel digital electroencephalograph, following international 10-20 system. AGE: 71Y DESCRIPTION OF THE RECORDING: From the beginning of the tracing, with the patient's eyes closed, the background rhythm was mostly consisting of 8 Hz alpha frequency in the posterior occipital leads. No obvious asymmetry was seen. Photic stimulation was performed with a minimal driving response seen. No pathological waves were elicited. Hyperventilation was not performed. The patient remains awake throughout the tracing. Occasional movement artifacts are seen. No epileptiform discharges are noticed. Her EKG lead showed regular rate and rhythm. INTERPRETATION: This awake EEG can be considered within normal limits. There was no asymmetry seen. No epileptiform discharges were noticed. The absence of epileptiform discharges does not rule out the diagnoses of epilepsy. Therefore, clinical correlation is recommended.
[2016-10-11] MEDS: MULTIVITAMINS, THERA 1 EACH TAB PO SCH (11:18)
[2016-10-11] MEDS: CYANOCOBALAMIN 500 MCG TAB PO SCH (11:18)
[2016-10-11 11:52] VITALS: BMI 33.7
[2016-10-11 12:27] VITALS: BP 134/69; PULSE 70; RESP 16
--- NOTE | 2016-10-11 13:23 | P.DS ---
Providers Date of admission: 10/09/16 18:53 Expected date of discharge: 10/11/16 Attending physician: Rukhsana Jacob Consults: 10/09/16 22:59 Consult Physician Routine Consulting Provider: Nato Mohan Consult Reason/Comments: Syncope, incontinence of urine Do you want consulting provider notified?: Yes, Notify in am [facility] Course: This is a pleasant 71-year-old lady patient of Dr. Rasheed. She has underlying history of hypothyroidism and a previous syncopal event 10 years prior to admission. She didn't have any workup at that time. She presented to emergency room after she felt lightheaded and dizzy and she thought that the ground shaking when she was working in the yard yesterday. She does not report any overt exhaustion or any GI losses at the time. She seemed to be well hydrated apparently she had felt weak and dizzy and thereafter passed out. It was not witnessed what happened during the syncopal event, patient denies any palpitations or chest discomfort during this. She had off and on headache for about a week prior to admission none during the event, also epistaxis off and on for about a week not during the event of syncope, her symptoms of dizziness occurs whenever the patient bends down and stands up, similar episodes for syncope 10 years ago. Patient denies any new medications from any physicians, she is only on multivitamins for her medical weight loss. She also goes to [employer] for an endurance program as recommended by the son she gets lightheaded and dizzy within 20 minutes of exercising there is no syncopal event during that time. Patient also reported later on that she had incontinence of the urine with a syncopal event there is no focal neurologic deficits upon awakening. She woke up up one hour later and was assisted by the who called his PCP. Emergency room she had a CAT scan of the head and cervical spine that failed to reveal any abnormality ventricles are normal for age, no mass effect or midline shift, no signs of intracranial hemorrhage, no signs off fracture, cervical vertebra shows mild spurring C5-C6, no destructive processes, EKG shows normal sinus rhythm prolonged QT with QTC of 501 chest x-ray shows normal chest no infiltrates no cardiomegaly or effusion. Urinalysis shows 6. speci Landrum of 1.008 without any pyuria, otherwise normal chemistries blood sugar was 111 WBC count of 10.8. Patient was admitted to telemetry floor with consultations neurology and cardiology, orthostatics will be obtained along with EEG and echocardiogram 10/11: patient has been seen by cardiology. Echocardiogram reveals EF is 55-60% , borderline concentric left ventricular hypertrophy, trace mitral regurgitation , mild tricuspid regurgitation. Carotid ultrasound shows no hemodynamically significant stenosis. Patient is scheduled for tilt table test and 30 day event monitor. She has been cleared from cardiology for discharge home. Discharge diagnoses: 1. Acute syncope abnormal EKG with prolonged QT interval, patient is not on any QT prolonging medications 2. Hypothyroidism 3. BMI of 33 4. Significant family history of coronary artery disease discharge plan: Return home Impression and plan of care have been directed as dictated by the signing physician. Karla Bergman nurse practitioner acting as scribe for signing physician. CC: Dr. Jones Rasheed Patient Condition at Discharge: Good Plan - Discharge Summary Discharge Medication List Aspirin [Adult Low Dose Aspirin EC] 81 mg PO DAILY 10/09/16 [History] Cyanocobalamin [Vitamin B-12] 500 mcg PO DAILY 10/09/16 [History] Ergocalciferol [Vitamin D2 (DRISDOL)] 50,000 unit PO SA 10/09/16 [History] Levothyroxine Sodium [Synthroid] 150 mcg PO DAILY 10/09/16 [History] Medical Weight Loss Multivitamin 1 tab PO DAILY 10/09/16 [History] Ubidecarenone [Co Q-10] 100 mg PO DAILY 10/09/16 [History] Melatonin 6 mg PO HS tablet 10/11/16 [Rx] Follow up Appointment(s)/Referral(s): [facility] [Provider Group] - 1 Week Nato Mohan MD [STAFF PHYSICIAN] - 2 Weeks Jones Rasheed DO [Primary Care Provider] - 1 Week Discharge Disposition: HOME SELF-CARE
[2016-10-11] MEDS ORDERED: SODIUM CHLORIDE 0.9% 500 ML IV ONE (14:50)
--- NOTE | 2016-10-11 17:23 | CE ---
DATE OF SERVICE: TILT TABLE TEST Lena Brandon is a 71-year-old female who underwent a tilt table test. Twelve-lead ECG shows sinus mechanism, normal CO interval, narrow QRS, normal ST segments, normal QT interval. Tilt table test was performed. Baseline blood pressure 120/60 mmHg. Baseline heart rate 66 beats per minute. She was tilted upright at an angle of 70 degrees per protocol. There was no change in her heart rate or blood pressure. She was laid supine at the end of the procedure. IMPRESSION: Normal heart rate and blood pressure response to upright tilting. No evidence for neurocardiogenic syncope.
[2016-10-13] MEDS ORDERED: ERGOCALCIFEROL 50,000 UNIT CAP PO SCH (12:00)
== END 2016-10-11 16:32 | disposition home or self-care (01) | DRG 312 ==
LOC: EC 16:09 → 6SEL 18:53
PROVIDERS: ADMIT Family Medicine; ATTEND Family Medicine
DX: R55 Syncope and collapse (principal); I08.1 Rheumatic disorders of both mitral and tricuspid valves; I45.81 Long QT syndrome; E03.9 Hypothyroidism, unspecified; M54.2 Cervicalgia; R51 Headache; R32 Unspecified urinary incontinence; Z79.82 Long term (current) use of aspirin; Z79.899 Other long term (current) drug therapy; Z82.49 Family history of ischemic heart disease and other diseases of the circulatory system; W19.XXXA Unspecified fall, initial encounter
CPT/HCPCS: 36415; 70450; 71020; 72125; 80053; 81001; 82550; 82553; 83735; 84484; 85025; 85610; 85730; 93005; 93306; 93660; 93880; 95819; 96361; 96374; 99285

== ENCOUNTER → 2018-01-17 | Outpatient (CLI) | payer BC, MEDICARE ==
--- NOTE | 2018-01-17 14:38 | NM ---
EXAMINATION TYPE: NM bone scan whole body DATE OF EXAM: 01/17/2018 COMPARISON: NONE HISTORY: 77 year-old female history of lung cancer and headaches Technique: Delayed whole-body scanning was performed following the injection of 25.7 mCi Tc 99m MDP. Images acquired 3 hours post injection. Anterior and posterior projections were obtained. FINDINGS: There is scattered degenerative tracer activity at the shoulders, sternoclavicular joints, right knee , base of the thumbs, right ankle, bilateral mid feet regions, and bilateral first MTP joints. Focus of increased activity at the left mandible suggests periodontal disease. No suspicious distribution o f tracer activity to suggest osseous metastatic disease. IMPRESSION: 1. No scintigraphic evidence for osseous metastatic disease. 2. Scattered degenerative tracer activity as above.
== END | disposition home or self-care (01) ==
LOC: RADNMMAIN 09:48
PROVIDERS: ATTEND Family Medicine
DX: R93.7 Abnormal findings on diagnostic imaging of other parts of musculoskeletal system (principal); M79.1 Myalgia
CPT/HCPCS: 78306; A9503

== ENCOUNTER 2023-04-22 12:23 | Emergency (ER) | payer MEDICARE ==
[2023-04-22 13:22] LABS: Basophils % (A) 1 %; Eosinophils # (A) 0.2 k/uL (0-0.7); Eosinophils % (A) 3 %; HCT 39.2 % (34.0-46.0); HGB 13.1 gm/dL (11.4-16.0); Lymphocytes # (A) 1.4 k/uL (1.0-4.8); Lymphocytes % (A) 23 %; MCH 31.2 pg (25.0-35.0); MCHC 33.3 g/dL (31.0-37.0); MCV 93.6 fL (80.0-100.0); Mean Platelet Volume 7.9; Monocytes # (A) 0.4 k/uL (0-1.0); Monocytes % (A) 6 %; Neutrophils % (A) 66 %; Platelet Count 313 k/uL (150-450); RBC 4.19 m/uL (3.80-5.40); WBC 6.1 k/uL (3.8-10.6)
[2023-04-22 13:31] LABS: INR 0.9 (<1.2)
[2023-04-22 13:32] LABS: ALT 27 U/L (4-34); AST 28 U/L (14-36); African American GFR (CKD) 79 (>60 ml/min/1.73 sqM); Alkaline Phosphatase 54 U/L (38-126); Anion Gap 6 mmol/L; Blood Urea Nitrogen 17 mg/dL (7-17); Carbon Dioxide 30 mmol/L (22-30); Chloride 106 mmol/L (98-107); Glucose 95 mg/dL (74-99); Magnesium 2.2 mg/dL (1.6-2.3); Non-African American GFR(CKD) 68 (>60 ml/min/1.73 sqM); Partial Thromboplastin Time 25.9 sec (22.0-30.0); Potassium 4.4 mmol/L (3.5-5.1); Prothrombin Time 9.8 sec (9.0-12.0); Sodium 142 mmol/L (137-145); Total Bilirubin 0.4 mg/dL (0.2-1.3); Total Protein 6.9 g/dL (6.3-8.2)
--- NOTE | 2023-04-22 13:46 | ED ---
Chest Pain HPI - General Source: patient, RN notes reviewed Mode of arrival: ambulatory Limitations: no limitations <Alex Tiwari - Last Filed: 04/22/23 13:45> <Geovany Luciano - Last Filed: 04/22/23 17:37> - General Chief Complaint: Chest Pain Stated Complaint: Chest Pain Time Seen by Provider: 04/22/23 13:45 - History of Present Illness Initial Comments: 69-year-old female presents emergency Department chief complaint of chest discomfort. She states she's had a couple episodes of this pain. She states that she cannot episode while eating today but she did have an episode while walking. She states it was discomfort with her central chest region. Patient states she went back her PCPs office after her visit today telling them she had chest pain again and she is advised to come here. She is currently asymptomatic. Denies any prior cardiac history but she does admit that she has a strong family history. (Alex Tiwari) This is a 77-year-old female who presents emergency Department with a complaint of chest discomfort. Patient states that sharp in nature it occurs often when she is coughing and it lasts for a few seconds at a time when it happens. Patient denies any pain now patient states in between episodes it doesn't hurt at all. Patient denies any shortness of breath per patient denies radiation of the pain. Patient denies any lightheadedness or dizziness. Patient denies any nausea vomiting or diarrhea. Patient denies any abdominal pain. Patient denies any recent fever or chills but she has had quite a bit of a cough lately and that started about a week and half ago. (Geovany Luciano) - Related Data Home Medications Medication Instructions Recorded Confirmed Aspirin [Adult Low Dose Aspirin EC] 81 mg PO DAILY 10/09/16 10/09/16 Cyanocobalamin [Vitamin B-12] 500 mcg PO DAILY 10/09/16 10/09/16 Ergocalciferol [Vitamin D2 50,000 unit PO SA 10/09/16 10/09/16 (DRISDOL)] Levothyroxine Sodium [Synthroid] 150 mcg PO DAILY 10/09/16 10/09/16 Medical Weight Loss Multivitamin 1 tab PO DAILY 10/09/16 10/09/16 Ubidecarenone [Co Q-10] 100 mg PO DAILY 10/09/16 10/09/16 Previous Rx's Medication Instructions Recorded Melatonin 6 mg PO HS tablet 10/11/16 Ibuprofen [Motrin] 600 mg PO Q6HR PRN #20 tab 04/22/23 Allergies Allergy/AdvReac Type Severity Reaction Status Date / Time No Known Allergies Allergy Verified 04/22/23 12:54 Review of Systems ROS Other: All systems not noted in ROS Statement are negative. <Alex Tiwari - Last Filed: 04/22/23 13:45> ROS Other: All systems not noted in ROS Statement are negative. <Geovany Luciano - Last Filed: 04/22/23 17:37> ROS Statement: Those systems with pertinent positive or pertinent negative responses have been documented in the HPI. Past Medical History Past Medical History: Syncope, Thyroid Disorder History of Any Multi-Drug Resistant Organisms: None Reported Past Surgical History: Cholecystectomy, Hysterectomy Past Anesthesia/Blood Transfusion Reactions: No Reported Reaction Past Psychological History: No Psychological Hx Reported Smoking Status: Never smoker Past Alcohol Use History: None Reported, Occasional, Rare Past Drug Use History: None Reported - Past Family History Father Family Medical History: Congestive Heart Failure (CHF), Coronary Artery Disease (CAD) Sister(s) Family Medical History: Coronary Artery Disease (CAD), CVA/TIA Additional Family Medical History / Comment(s): aortic valve replacement Brother(s) Family Medical History: Myocardial Infarction (NM) Mother Family Medical History: Coronary Artery Disease (CAD) Son(s) Family Medical History: Hyperlipidemia <Alex Tiwari - Last Filed: 04/22/23 13:45> General Exam Limitations: no limitations <Alex Tiwari - Last Filed: 04/22/23 13:45> <Geovany Luciano - Last Filed: 04/22/23 17:37> - General Exam Comments Initial Comments: Visual Physical Exam Vital signs reviewed General: Well-appearing, nontoxic, no acute distress. Head: Normocephalic, atraumatic Eyes: PERRLA, EOMI ENT: Airway patent Chest: Nonlabored breathing Skin: No visual rash, normal skin tone Neuro: Alert and oriented 3 Musculoskeletal: No gross abnormalities (Alex Tiwari) GENERAL: Patient is well-developed and well-nourished. Patient is nontoxic and well- hydrated and is in no acute distress. ENT: Neck is soft and supple. No significant lymphadenopathy is noted. Oropharynx is clear. Moist mucous membranes. Neck has full range of motion without eliciting any pain. EYES: The sclera were anicteric and conjunctiva were pink and moist. Extraocular movements were intact and pupils were equal round and reactive to light. Eyelids were unremarkable. PULMONARY: Unlabored respirations. Good breath sounds bilaterally. No audible rales rhonchi or wheezing was noted. CARDIOVASCULAR: There is a regular rate and rhythm without any murmurs gallops or rubs. ABDOMEN: Soft and nontender with normal bowel sounds. SKIN: Skin is clear with no lesions or rashes and otherwise unremarkable. NEUROLOGIC: Patient is alert and oriented x3. Cranial nerves II through XII are grossly in tact. Motor and sensory are also intact. Normal speech, volume and content. Symmetrical smile. MUSCULOSKELETAL: Patient has full range of motion of all 4 extremities patient has a wound on the left foot which is malodorous and has some pus exuding from. LYMPHATICS: No significant lymphadenopathy is noted PSYCHIATRIC: Normal psychiatric evaluation. (Geovnay Luciano) Course Vital Signs 04/22/23 12:48 Temperature 98.2 F Pulse Rate 78 Respiratory 14 Rate Blood Pressure 145/64 O2 Sat by Pulse 97 Oximetry Chest Pain MDM <Alex Tiwari - Last Filed: 04/22/23 13:45> <Geovany Luciano - Last Filed: 04/22/23 17:37> - MDM I performed a quick note portion of this chart signed Alex Tiwari PA-C (Alex Tiwari) EKG was interpreted by myself. EKG shows sinus rhythm at 73 bpm IL interval 157 QRS is 86 QT interval 389 QTC is 4:15. Patient's EKG shows no ST segment elevation or depression. Was pt. sent in by a medical professional or institution ([facility], CREDIT COLLECTIONS MANAGER, urgent care, hospital, or assisted...) When possible be specific @ -No Did you speak to anyone other than the patient for history (EMS, parent, family, police, friend...)? What history was obtained from this source @ -No Did you review nursing and triage notes (agree or disagree)? Why? @ -I reviewed and agree with nursing and triage notes Were old charts reviewed (outside hosp., previous admission, EMS record, old EKG, old radiological studies, urgent care reports/EKG's, assisted records)? Report findings @ -No old charts were reviewed Differential Diagnosis (chest pain, altered mental status, abdominal pain women, abdominal pain men, vaginal bleeding, weakness, fever, dyspnea, syncope, headache, dizziness, GI bleed, back pain, seizure, CVA, palpatations, mental health, musculoskeletal)? @ -Differential Chest Pain: Stable Angina, Unstable Angina, STEMI, NSTEMI Aortic Dissection, Pneumothorax, Musculoskeletal, Esophageal Spasm GERD, Cholecystitis, Pancreatitis, Zoster, this is not meant to be an all-inclusive list. EKG interpreted by me (3pts min.). @ -As above X-rays interpreted by me (1pt min.). @ -Chest x-ray shows no acute abnormality CT interpreted by me (1pt min.). @ -None done U/S interpreted by me (1pt. min.). @ -None done What testing was considered but not performed or refused? (CT, X-rays, U/S, labs)? Why? @ -None What meds were considered but not given or refused? Why? @ -None Did you discuss the management of the patient with other professionals (professionals i.e. , PA, CREDIT COLLECTIONS MANAGER, lab, RT, psych nurse, public health social worker, customer care team coach, teacher, communications officer, medical case worker)? Give summary @ -No Was smoking cessation discussed for >3mins.? @ -No Was critical care preformed (if so, how long)? @ -No Were there social determinants of health that impacted care today? How? (Homelessness, low income, unemployed, alcoholism, drug addiction, munguia sportation, low edu. Level, literacy, decrease access to med. care, alf, rehab)? @ -No Was there de-escalation of care discussed even if they declined (Discuss DNR or withdrawal of care, Hospice)? DNR status @ -No What co-morbidities impacted this encounter? (DM, HTN, Smoking, COPD, CAD, Cancer, CVA, ARF, Chemo, Hep., AIDS, mental health diagnosis, sleep apnea, morbid obesity)? @ -None Was patient admitted / discharged? Hospital course, mention meds given and route, prescriptions, significant lab abnormalities, going to OR and other pertinent info. @ -Received Toradol emergency department. Patient states the pain was definitively worse with coughing and she was just sitting there was no pain at all. Patient states she did have a couple episodes of pain while in the emergency department it lasted only 1-2 seconds each time. Patient does not want us to the emergency department or be admitted any longer so she'll be discharged home to follow-up Undiagnosed new problem with uncertain prognosis? @ -No Drug Therapy requiring intensive monitoring for toxicity (Heparin, Nitro, Insulin, Cardizem)? @ -No Were any procedures done? @ -No Diagnosis/symptom? @ -Chest wall pain Acute, or Chronic, or Acute on Chronic? @ -Acute Uncomplicated (without systemic symptoms) or Complicated (systemic symptoms)? @ -Complicated Side effects of treatment? @ -No Exacerbation, Progression, or Severe Exacerbation? @ -No Poses a threat to life or bodily function? How? (Chest pain, [place], NM, pneumonia, PE, COPD, DKA, ARF, appy, cholecystitis, CVA, Diverticulitis, Homicidal, Suicidal, threat to staff... and all critical care pts) @ -No (Geovany Luciano) Disposition <Alex Tiwari - Last Filed: 04/22/23 13:45> Is patient prescribed a controlled substance at d/c from ED?: No Time of Disposition: 17:36 <Geovany Luciano - Last Filed: 04/22/23 17:37> Clinical Impression: Chest wall pain Disposition: HOME SELF-CARE Condition: Good Instructions (If sedation given, give patient instructions): Chest Wall Pain (ED) Prescriptions: Ibuprofen [Motrin] 600 mg PO Q6HR PRN #20 tab PRN Reason: For pain Referrals: Jones Rasheed DO [Primary Care Provider] - 1-2 days
--- NOTE | 2023-04-22 14:21 | XR ---
EXAMINATION TYPE: XR chest 2V DATE OF EXAM: 04/22/2023 2:18 PM COMPARISON: Chest radiographs from 10/09/2016 TECHNIQUE: XR chest 2V Frontal and lateral views of the chest. CLINICAL INDICATION:Female, 77 years old with history of Chest Pain; FINDINGS: Lungs/Pleura: There is no evidence of pleural effusion, focal consolidation, or pneumothorax. Pulmonary vascularity: Unremarkable. Heart/mediastinum: Cardiomediastinal silhouette is unremarkable. Musculoskeletal: No acute osseous pathology. Mild degenerative changes of the thoracic spine. Other findings: Cholecystectomy clips in the right upper quadrant. IMPRESSION: No acute cardiopulmonary disease/process.
[2023-04-22] MEDS ORDERED: KETOROLAC 15 MG/ML 1 ML VIAL IM STA (15:45)
[2023-04-22] MEDS ORDERED: KETOROLAC 15 MG/ML 1 ML VIAL IVP STA (17:18)
[2023-04-22 17:58] VITALS: BP 144/67; PULSE 67; RESP 18; TEMP 98.4
== END 2023-04-22 17:58 | disposition home or self-care (01) ==
LOC: EC 12:23
DX: R07.89 Other chest pain (principal); E07.9 Disorder of thyroid, unspecified; Z79.890 Hormone replacement therapy; Z79.82 Long term (current) use of aspirin; Z90.49 Acquired absence of other specified parts of digestive tract; Z20.822 Contact with and (suspected) exposure to COVID-19
CPT/HCPCS: 36415; 93005; 85379; 80053; 83735; 84484; 85025; 85610; 85730; 87636; 71046; 99285; 96374; J1885

== ENCOUNTER → 2023-05-20 | Outpatient (CLI) | payer MEDICARE ==
--- NOTE | 2023-05-20 13:56 | XR ---
EXAMINATION TYPE: XR tibia fibula RT DATE OF EXAM: 05/20/2023 12:59 PM CLINICAL INDICATION:Female, 77 years old with history of R52 PAIN R/O STRESS FRACTURE; [facility] COMPARISON: 05/20/2023 TECHNIQUE: XR tibia fibula RT; tibia/fibula was examined in AP and lateral projections. FINDINGS: Soft tissue sign throughout the relatively no evidence for displaced fracture. There is Ach illes insertional enthesophyte. Degeneration changes of the knee with osteophyte formation joint spac e narrowing. IMPRESSION: Soft tissue swelling throughout the right lower extremity. There is no evidence for displaced fractur e.
== END | disposition home or self-care (01) ==
LOC: RADXRMAIN 12:35
PROVIDERS: ATTEND Family Medicine
DX: M79.661 Pain in right lower leg (principal); M79.89 Other specified soft tissue disorders